=== PATIENT | female | born 1970 | race Caucasian/White ===

== ENCOUNTER 2018-08-05 15:51 | Emergency (ER) | payer SELFPAY ==
[~2018-08-05] VITALS: Ht 152.4 cm; Wt 61.0 kg
[2018-08-05 18:40] LABS: CHLORIDE 107 mEq/L (98-107)
[2018-08-05 20:00] VITALS: BP 128/74
== END 2018-08-05 20:15 | disposition home or self-care (01) ==
LOC: ER 15:51
DX: R20.2 Paresthesia of skin (principal); Z86.718 Personal history of other venous thrombosis and embolism; Z98.51 Tubal ligation status
CPT/HCPCS: 36415; 80048; 81025; 83735; 99284